=== PATIENT | male | born 1975 | race American Indian/Alaskan Native ===

== ENCOUNTER 2020-10-16 09:21 | Emergency (ER) | payer MEDICAID ==
[~2020-10-16] VITALS: Ht 180.3 cm; Wt 95.0 kg
[2020-10-16] MEDS ORDERED: IBUPROFEN 800MG TABLET PO ONE (10:00)
[2020-10-16] MEDS ORDERED: IBUP-2029 PO (10:06)
[2020-10-16] MEDS ORDERED: CIPR-263 PO (10:06)
[2020-10-16] MEDS ORDERED: CIPDEX RIGHT EAR (10:06)
[2020-10-16 10:28] VITALS: BP 122/78
== END 2020-10-16 10:29 | disposition home or self-care (01) ==
LOC: ER 09:21
DX: H60.91 Unspecified otitis externa, right ear (principal); Z88.0 Allergy status to penicillin
CPT/HCPCS: 99283